=== PATIENT | female | born 1945 | race Caucasian/White ===

== ENCOUNTER 2019-08-28 09:40 | Outpatient (CLI) | payer BC, SELFPAY ==
--- NOTE | 2019-08-28 11:00 | NEURO_ITS ---
Patient Number: [id number] Impression: # Complains of hand numbness bilaterally. # No Carpal Tunnel Syndrome or ulnar neuropathy. # Normal needle/EMG exam. # Clinical correlation recommended. Nerve Conduction Studies Anti Sensory Summary Table Stim Site NR Peak (ms) P-T Amp (?V) Site1 Site2 Delta-P (ms) Dist (cm) Randy (m/s) Left Median Anti Sensory (2-3nd Digit) Wrist 2.5 58.5 Wrist 2-3nd Digit 2.5 14.0 56 Wrist 2.8 50.2 Wrist 2-3nd Digit 2.5 14.0 56 Right Median Anti Sensory (2-3nd Digit) Wrist 2.4 41.5 Wrist 2-3nd Digit 2.4 14.0 58 Wrist 2.4 58.3 Wrist 2-3nd Digit 2.4 14.0 58 Left Radial Anti Sensory (Base 1st Digit) Wrist 2.0 30.3 Wrist Base 1st Digit 2.0 0.0 Right Radial Anti Sensory (Base 1st Digit) Wrist 2.1 31.5 Wrist Base 1st Digit 2.1 0.0 Left Ulnar Anti Sensory (5th Digit) Wrist 2.5 50.2 Wrist 5th Digit 2.5 14.0 56 Right Ulnar Anti Sensory (5th Digit) Wrist 2.3 42.7 Wrist 5th Digit 2.3 14.0 61 Motor Summary Table Stim Site NR Onset (ms) O-P Amp (mV) Site1 Site2 Delta-0 (ms) Dist (cm) Randy (m/s) Left Median Motor (Abd Poll Brev) Wrist 2.7 6.9 Elbow Wrist 4.2 24.0 57 Elbow 6.9 2.9 Right Median Motor (Abd Poll Brev) Wrist 2.7 6.9 Elbow Wrist 4.7 26.0 55 Elbow 7.4 4.7 Left Ulnar Motor (Abd Dig Minimi) Wrist 2.7 6.3 A Elbow Wrist 4.3 27.0 63 A Elbow 7.0 4.5 Right Ulnar Motor (Abd Dig Minimi) Wrist 2.7 5.4 A Elbow Wrist 4.7 26.0 55 A Elbow 7.4 4.1 F Wave Studies NR F-Lat (ms) L-R F-Lat (ms) Left Median (Mrkrs) (Abd Poll Brev) 26.23 0.38 Right Median (Mrkrs) (Abd Poll Brev) 25.85 0.38 Left Ulnar (Mrkrs) (Abd Dig Min) 26.33 0.58 Right Ulnar (Mrkrs) (Abd Dig Min) 26.91 0.58 EMG Side Muscle Nerve Root Ins Act Fibs Amp Dur Recrt Comment Right 1stDorInt Ulnar C8-T1 Nml Nml Nml Nml Nml Right Ext Indicis Radial (Post Int) C7-8 Nml Nml Nml Nml Nml Right Ext Digitorum Radial (Post Int) C7-8 Nml Nml Nml Nml Nml Right BrachioRad Radial C5-6 Nml Nml Nml Nml Nml Right PronatorTeres Median C6-7 Nml Nml Nml Nml Nml Right Abd Poll Brev Median C8-T1 Nml Nml Nml Nml Nml Left 1stDorInt Ulnar C8-T1 Nml Nml Nml Nml Nml Left Ext Indicis Radial (Post Int) C7-8 Nml Nml Nml Nml Nml Left Ext Digitorum Radial (Post Int) C7-8 Nml Nml Nml Nml Nml Left BrachioRad Radial C5-6 Nml Nml Nml Nml Nml Left PronatorTeres Median C6-7 Nml Nml Nml Nml Nml Left Abd Poll Brev Median C8-T1 Nml Nml Nml Nml Nml Left ABD Dig Min Ulnar C8-T1 Nml Nml Nml Nml Nml Right ABD Dig Min Ulnar C8-T1 Nml Nml Nml Nml Nml MTDD
== END 2019-08-28 09:41 | disposition home or self-care (01) ==
PROVIDERS: PCP Family Medicine; Visit Provider Surgery Plastic and Reconstructive Surgery
DX: R20.0 Anesthesia of skin (principal)
CPT/HCPCS: 95886; 95911

== ENCOUNTER 2020-02-27 13:01 | Outpatient (CLI) | payer BC, SELFPAY ==
--- NOTE | ~2020-02-27 | DEXA_ITS ---
Bone Density Report Name: Chaya Santana Age: 74 Sex: Female Ethnicity: White Date of : 1945 Indication: postmenopausal; Referring Provider: Avril Cormier Study: Bone densitometry was performed. Exam Date: February 27, 2020 Accession number: [id number] Bone Density: Region BMD T-score Z-score Classification AP Spine (L2, L3, L4) 1.040 -0.4 2.0 Normal Femoral Neck (Left) 0.671 -1.6 0.4 Osteopenia Total Hip (Left) 0.932 -0.1 1.6 Normal Total Hip Bilateral Avg 0.933 -0.1 1.6 Normal Femoral Neck (Right) 0.667 -1.6 0.3 Osteopenia Total Hip (Right) 0.933 -0.1 1.6 Normal World Health Organization criteria for BMD impression classify patients as: Normal (T-score at or above -1.0), Osteopenia (T-score between -1.0 and -2.5), or Osteoporosis (T-score at or below -2.5). 10-year Fracture Risk(1): Major Osteoporotic Fracture 11% Hip Fracture 2.0% Reported Risk Factors: [place] (), Neck BMD=0.667, BMI=28.3 (1) FRAX(R) Version 3.08. Fracture probability calculated for an untreated patient. Fracture probability may be lower if the patient has received treatment. Clinical Information Provided by Patient: Patient maximum height was 63 Menopause Age: 44 No regular weight bearing exercise Drinks caffeinated beverages Onset of menses at age 13 Number of children 2 Impression: The patient has low bone mass, based on the Left Femoral Neck T-score. The patient has an estimated ten-year risk of hip fracture of 2% and an estimated ten-year risk of major fracture of 11%, based on the WHO FRAX algorithm. Discussion: BONE DENSITY IS LOW AT ONE OR MORE SKELETAL SITES. This patient's lowest T-score is low at one or more skeletal sites. It meets the World Health Organization's (WHO) criteria for ?low bone mass? (T-score between -1.0 and -2.5). The patient's 10-year risk of fracture as calculated by FRAX is less than the threshold where pharmacological therapy is recommended by the National Osteoporosis Foundation (NOF). However, all treatment decisions require clinical judgment and consideration of individual patient factors, including patient preferences, comorbidities, previous drug use, risk factors not captured in the FRAX model (e.g., frailty, falls, vitamin D deficiency, increased bone turnover, interval significant decline in bone density) and possible under or overestimation of fracture risk by FRAX. The patient should follow a healthful lifestyle (good nutrition with adequate calcium and vitamin D, and appropriate weight-bearing exercise). Follow-Up: Consider repeating this study in 2 to 3 years to reassess this patient's status, or sooner if there is some new clinical indication. Reported by: FAVIAN on 02/27/2020 1:56:00 PM. Reviewed, dictated a
--- NOTE | ~2020-02-27 | US_ITS ---
EXAMINATION: US thyroid DATE: 02/27/2020 13:31 INDICATION: Nontoxic single thyroid nodule TECHNIQUE: Multiple ultrasound images of the thyroid were obtained. COMPARISON: None. FINDINGS: The right thyroid lobe measures 3.9 x 1.4 x 1.3 cm. The left thyroid lobe measures 3.6 x 1.2 x 1.5 c m. 4 mm hypoechoic TI RADS 4 nodule in the left thyroid lobe. There is normal echotexture, echogenic ity and vascular flow throughout the thyroid gland. IMPRESSION: 1. 4 mm hypoechoic TI RADS 4 nodule in the left thyroid lobe which does not meet criteria for ultraso und-guided biopsy or follow-up. Reviewed, dictated and finalized at location B. IMPRESSION: 1. 4 mm hypoechoic TI RADS 4 nodule in the left thyroid lobe which does not brent t criteria for ultrasound-guided biopsy or follow-up.
== END 2020-02-27 13:02 | disposition home or self-care (01) ==
LOC: ANHIMG 13:09
PROVIDERS: PCP Physician Assistant; Visit Provider Internal Medicine Endocrinology, Diabetes & Metabolism
DX: E04.1 Nontoxic single thyroid nodule (principal); M85.80 Other specified disorders of bone density and structure, unspecified site; Z78.0 Asymptomatic menopausal state; M85.852 Other specified disorders of bone density and structure, left thigh; M85.851 Other specified disorders of bone density and structure, right thigh
CPT/HCPCS: 76536; 77080

== ENCOUNTER 2020-03-31 11:16 | Outpatient (CLI) | payer BC, SELFPAY ==
--- NOTE | ~2020-03-31 | CT_ITS ---
EXAMINATION: CTA chest PE protocol DATE: 03/31/2020 13:43 INDICATION: Elevated d-dimer TECHNIQUE: Computed tomography angiography (CTA) of the chest was performed with 100 mL Omnipaque-350 intravenous contrast timed to evaluate the pulmonary arteries. Coronal maximum intensity projection 3D-reconstructions were created by the technologist. Automated exposure control and iterative reconst ruction technique were employed. Exam dose: 387.03 mGy-cm total exam DLP. COMPARISON: None. FINDINGS: There is diagnostic contrast enhancement of the pulmonary arteries and no evidence of pulmo nary embolism. No thoracic aortic aneurysm or dissection. No hilar or mediastinal mass lesion or lymphadenopathy. No pericardial or pleural effusion. There is bilateral apical scarring. There is discoid atelectasis or scarring in both lower lobes. No pulmonary infiltrate or consolidation or any suspicious pulmonary mass lesion is noted. Diffuse idiopathic skeletal hyperostosis of the thoracic spine. IMPRESSION: No evidence of pulmonary embolism Reviewed, dictated and finalized at Location A. Reviewed, dictated and finalized at location A.
[2020-03-31 14:36] LABS: Estimated Glomerular Filt Rate > 60
== END 2020-03-31 11:17 | disposition home or self-care (01) ==
PROVIDERS: PCP Physician Assistant; Visit Provider Physician Assistant
DX: R79.1 Abnormal coagulation profile (principal)
CPT/HCPCS: 71275; Q9967

== ENCOUNTER → 2020-11-18 07:40 | Outpatient (CLI) | payer BC, SELFPAY ==
--- NOTE | ~2020-11-18 | US_ITS ---
EXAMINATION: US right upper quadrant DATE: 11/18/2020 08:14 INDICATION: Abnormal liver function tests. TECHNIQUE: Multiple grayscale and Doppler ultrasound images of the abdomen were obtained. COMPARISON: Chest CT 03/31/2020 FINDINGS: Abdominal aorta is normal in caliber. The visualized portions of the head, body, and tail o f the pancreas are normal. There is diffuse hepatic steatosis. No liver surface nodularity. There is normal flow in main portal vein. The gallbladder is normal in size and contains sludge. No gallstones or gallbladder wall thickening. There was no sonographic Reyes sign. The common duct is normal and measures 3 mm. IMPRESSION: 1. Diffuse hepatic steatosis. Reviewed, dictated and finalized at location B.
== END ==
PROVIDERS: PCP Physician Assistant; Visit Provider Physician Assistant
DX: K76.0 Fatty (change of) liver, not elsewhere classified (principal)
CPT/HCPCS: 76705

== ENCOUNTER 2021-01-21 09:52 | Outpatient (CLI) | payer BC, SELFPAY ==
[2021-01-21 16:53] LABS: Free T4 Free Thyroxine 1.05 ng/mL (0.78-2.19); Vitamin D 25 Hydroxy 49.7 ng/mL
== END 2021-01-21 09:53 | disposition home or self-care (01) ==
LOC: ANHWCLAB 09:55
PROVIDERS: PCP Physician Assistant; Visit Provider Internal Medicine Endocrinology, Diabetes & Metabolism
DX: E04.1 Nontoxic single thyroid nodule (principal); M85.80 Other specified disorders of bone density and structure, unspecified site
CPT/HCPCS: 36415; 82306; 84439; 84443

== ENCOUNTER 2021-10-23 12:25 | Emergency (ER) | payer MEDICARE, SELFPAY ==
[2021-10-23 12:34] VITALS: BP 111/64; PULSE 74; RESP 16; TEMP 36.4; O2SAT 99
--- NOTE | 2021-10-23 12:46 | ED.URI ---
HPI - URI/Sore Throat General Chief Complaint: Upper Respiratory Infection Stated Complaint: sore throat,head cold,slight fever Time Seen by Provider: 10/23/21 12:47 Source: patient, RN notes reviewed and old records reviewed Mode of arrival: ambulatory Limitations: no limitations History of Present Illness HPI Narrative: 76-year-old female who presents to [facility] with complaints of 3 day history of sore throat, sinus congestion and pressure, cough with intermittent low grade fevers with highest noted 99.7F. Patient reports that she has facial pressure with yellow sinus drainage, reports past sinusitis history. Patient is concerned over her symptoms since she is leaving for trip to [place] on this coming Monday. Patient reports that she has been taking Emergen- C and Haydee with no resolutions in her symptoms. Patient has had COVID vaccinations and flu shot this season. MD elicited complaint: fever and sore throat Related Data Home Medications Medication Instructions Recorded Confirmed azelastine 137 mcg (0.1 %) nasal NASAL PRN 01/21/21 01/21/21 spray aerosol potassium chloride meq PO 10/23/21 rosuvastatin mg 10/23/21 Allergies Allergy/AdvReac Type Severity Reaction Status Date / Time propoxyphene [From Darvon] Allergy Unknown Verified 09/13/19 08:09 amoxicillin AdvReac Nausea and Verified 10/23/21 12:37 Vomiting Review of Systems Review of Systems: CONSTITUTIONAL: Positive for low grade fever, chills, or sweats. EYES: Denies visual changes, redness, or discharge. ENT: Positive for rhinorrhea, congestion, sore throat, no otalgia, positive for facial sinus pressure CARDIOVASCULAR: Denies chest pain, palpitations, or edema. RESPIRATORY: Positive for cough denies dyspnea. GASTROINTESTINAL: Denies abdominal pain, nausea, vomiting, or diarrhea. GENITOURINARY: Denies dysuria or hematuria. SKIN: Denies rash or itching. MUSCULOSKELETAL: Chronic intermittent back pain, joint pain, or myalgia. NEUROLOGIC: Denies headache, numbness, or weakness. PSYCHIATRIC:Positive for history of anxiety or depression. All systems reviewed & are unremarkable except as noted in HPI and below PMFSH Past Medical History Medical History (Updated 10/23/21 @ 12:58 by Dennise Marroquin NP) Anxiety as acute reaction to exceptional stress (~2015) Essential (primary) hypertension Hyperlipidemia, unspecified Multinodular goiter (nontoxic) Postmenopausal (~1995) Reactive depression (situational) (~2015) Surgical History Surgical History (Updated 10/23/21 @ 22:21 by Dennise Marroquin NP) History of delivery 1982 History of tonsillectomy Family History Family History Mother Family history of thyroid disease Family history of lymphoma Father Hypertension Family history of heart disease in male family member before age 55 Sibling Hypertension Family history of diabetes mellitus in first degree relative Family history of malignant neoplasm of urinary bladder Grandparent Family history of colitis Diabetes mellitus Other Depression Family history of cardiovascular disease Family history of chronic obstructive pulmonary disease Family history of hearing loss Family history of hepatitis Family history of ulcerative colitis Social History Social History Smoking status: Former smoker Smoking end date: 06/26/82 Alcohol intake: current Comments At time of signature, agree with nursing past medical, surgical, social and family history. There is no relevant family history pertinent to the presenting complaint Exam Narrative: GENERAL: ill-appearing, well-nourished, and in no acute distress. HEAD: Normocephalic, atraumatic. EYES: PERRLA and EOMI. ENT: Nares red and swollen yellowish rhinorrhea no epistaxis. Mucous membranes moist.TM's normal with dull light reflex, throat red with no le
== END 2021-10-23 13:04 | disposition home or self-care (01) ==
PROVIDERS: Emergency Provider Registered Nurse; PCP Physician Assistant
DX: J32.9 Chronic sinusitis, unspecified (principal); B96.89 Other specified bacterial agents as the cause of diseases classified elsewhere; R05.9 Cough, unspecified; I10 Essential (primary) hypertension; E78.5 Hyperlipidemia, unspecified; Z87.891 Personal history of nicotine dependence
CPT/HCPCS: 99213; G0463

== ENCOUNTER 2023-03-23 14:24 | Outpatient (CLI) | payer MEDICARE, SELFPAY ==
--- NOTE | ~2023-03-23 | DEXA_ITS ---
Bone Density Report Name: DIEGO HOWARD Age: 77 Sex: Female Ethnicity: White Date of : 1945 Indication: postmenopausal; screening for osteoporosis; Referring Provider: EDIL, HECTOR Study: Bone densitometry was performed. Exam Date: March 23, 2023 Accession number: [id number] Bone Density: Region BMD T-score Z-score Classification AP Spine(L2, L3, L4) 1.059 -0.2 2.4 Normal Femoral Neck (Left) 0.666 -1.6 0.5 Osteopenia Total Hip (Left) 0.912 -0.2 1.6 Normal Femoral Neck (Right) 0.692 -1.4 0.7 Osteopenia Total Hip (Right) 0.908 -0.3 1.5 Normal Total Hip Mean 0.910 -0.3 1.6 Normal World Health Organization criteria for BMD impression classify patients as: Normal (T-score at or above -1.0), Osteopenia (T-score between -1.0 and -2.5), or Osteoporosis (T-score at or below -2.5). 10-year Fracture Risk(1): Major Osteoporotic Fracture 12% Hip Fracture 2.6% Reported Risk Factors: [place] (), Neck BMD=0.666, BMI=26.7 (1) FRAX(R) Version 3.08. Fracture probability calculated for an untreated patient. Fracture probability may be lower if the patient has received treatment. Previous Exams: Region Exam Age BMD T-score BMD Change BMD Change Date g/cm2 vs Baseline vs Previous AP Spine (L2-L4) 03/23/2023 77 1.059 -0.2 0.019 (1.8%)# 0.019 (1.8%)# 02/27/2020 74 1.040 -0.4 Total Hip(Left) 03/23/2023 77 0.912 -0.2 -0.020 (-2.2%) -0.020 (-2.2%) 02/27/2020 74 0.932 -0.1 Total Hip(Right) 03/23/2023 77 0.908 -0.3 -0.025 (-2.7%) -0.025 (-2.7%) 02/27/2020 74 0.933 -0.1 *Denotes significance at 95% confidence level, LSC for AP Spine = 0.022 g/cm2, LSC for Total Hip = 0.027 g/cm2 # Denotes dissimilar scan types or analysis methods Clinical Information Provided by Patient: Has used the following medications: Vitamin D, Calcium Patient maximum height was 63 Menopause Age: 44 No regular weight bearing exercise Does not regularly consume dairy products Onset of menses at age 13 Number of children 2 Impression: The patient has low bone mass, based on the Left Femoral Neck T-score. The patient has an estimated ten-year risk of hip fracture of 2.6% and an estimated ten-year risk of major fracture of 12%, based on the WHO FRAX algorithm. No significant bone loss was observed. Discussion: BONE DENSITY IS LOW AT ONE OR MORE SKELETAL SITES. This patient's lowest T-score is low at one or more skeletal
== END 2023-03-23 14:25 | disposition home or self-care (01) ==
PROVIDERS: PCP Physician Assistant; Visit Provider Physician Assistant
DX: M85.852 Other specified disorders of bone density and structure, left thigh (principal); M85.851 Other specified disorders of bone density and structure, right thigh
CPT/HCPCS: 77080

== ENCOUNTER 2023-04-13 09:57 | Emergency (ER) | payer MEDICARE, SELFPAY ==
[2023-04-13] VITALS (9 sets, daily range): BP systolic 122–147; BP diastolic 65–87; PULSE 60–77; RESP 14–20; TEMP 36.6; O2SAT 96–100
--- NOTE | ~2023-04-13 | XR_ITS ---
Clinical Indication: Chest pain PA and lateral views of the chest: Comparison: None Findings: The lungs are clear, without evidence of focal consolidation or pleural effusion. Cardiome diastinal silhouette is within normal limits. Bones and soft tissues are unremarkable. Impression: Normal chest. Reviewed, dictated and finalized at location . Impression: Normal chest.
--- NOTE | 2023-04-13 10:05 | ECG_ITS ---
Measurements Intervals Sherman Rate: 71 P: 57 CA: 137 QRS: 44 QRSD: 80 T: 66 QT: 370 QTc: 403 Interpretive Statements SINUS RHYTHM NORMAL ECG NO PREVIOUS ECG AVAILABLE FOR COMPARISON Electronically Signed On 04-13-2023 17:17:52 CDT by Giovany Alves M.D.
[2023-04-13 10:31] LABS: Basophils Absolute Auto 0.1 K/mm3 (0.0-0.1); Basophils Percent Auto 1.6 % (0.2-1.2); Eosinophils Absolute Auto 0.2 K/mm3 (0-0.3); Eosinophils Percent Auto 2.9 % (0-4.4); Hematocrit 40.4 % (37.0-47.0); Immature Granulocyte Absolute 0.01 K/mm3 (0.00-0.031); Immature Granulocyte Percent A 0.2 % (0-0.5); Lymphocytes Absolute Auto 1.52 K/mm3 (0.9-3.2); Lymphocytes Percent Auto 24.7 % (18.3-44.2); Mean Corpuscular HGB Conc 32.2 g/dl (32-36); Mean Corpuscular Hemoglobin 30.7 pg (26-34); Mean Corpuscular Volume 95.5 fl (80-100); Mean Platelet Volume 10.7 fl (7.4-10.4); Monocytes Absolute Auto 0.6 K/mm3 (0.1-0.6); Monocytes Percent Auto 10.4 % (2.6-8.5); Neutrophils Absolute Auto 3.7 K/mm3 (1.3-6.7); Neutrophils Percent Auto 60.2 % (45.5-73.1); Platelet Count Result 237 k/mm3 (150-375); Red Blood Count 4.23 M/mm3 (4.2-5.4); Red Cell Distribution Width 12.4 % (11.5-14.5); White Blood Count 6.2 K/mm3 (4.5-10.0)
[2023-04-13 10:42] LABS: INR 0.9; Partial Thromboplastin Time 25.3 SECONDS (22.3-36.8)
[2023-04-13 10:45] LABS: Alanine Aminotransferase 32 U/L (6-35); Albumin Level 4.2 g/dL (3.5-5.1); Alkaline Phosphatase 70 U/L (38-126); Anion Gap 8 mmol/L (8-16); Aspartate Amino Transferase 34 U/L (14-36); Bilirubin,Total 0.6 mg/dL (0.2-1.3); Blood Urea Nitrogen 19 mg/dL (7-17); Carbon Dioxide 26 mmol/L (22-30); Chloride 102 mmol/L (98-107); Estimated CRCL calculation 44 ml/min; Estimated Glomerular Filt Rate > 60; Glucose 103 mg/dL (65-110); Lipase 233 U/L (23-300); Potassium 3.8 mmol/L (3.4-5.0); Sodium 136 mmol/L (137-145)
[2023-04-13 10:54] LABS: Troponin I < 0.012 ng/mL (0.000-0.034)
--- NOTE | 2023-04-13 12:50 | ED.CHESTPAIN ---
HPI - Chest Pain General Chief Complaint: Chest Pain Stated Complaint: High BP/ Chest pain Time Seen by Provider: 04/13/23 11:59 History of Present Illness HPI narrative: Patient is a 77-year-old female who presents ER with reports of heart palpitations and lightheadedness. Began early this morning. Lasted 2 hours. Heart rate was approximately 136 bpm and she felt like it was irregular. She had some sharpness under her right breast. Not associated with eating or drinking. No fevers or chills or sweats. No history of heart disease or arrhythmia. Asymptomatic at this time Related Data Home Medications Medication Instructions Recorded Confirmed azelastine 137 mcg (0.1 %) nasal intranasal PRN 01/21/21 01/19/23 spray aerosol potassium chloride 10 mEq meq PO 10/23/21 01/19/23 tablet,extended release [facility] 01/19/22 01/19/23 acetaminophen 650 mg 650 mg PO Q12H 01/19/22 01/19/23 tablet,extended release (Arthritis Pain Reliever) calcium carb-ergocalciferol (vit tablet PO 01/19/22 01/19/23 D2) 600 mg calcium-200 unit tablet fexofenadine 60 mg tablet (Haydee 60 mg PO Q12H 01/19/22 01/19/23 Allergy) melatonin 10 mg capsule 10 mg PO QHS 01/19/22 01/19/23 osteo biflex [facility] 01/19/22 01/19/23 rosuvastatin 10 mg tablet 10 mg PO DAILY 01/19/22 01/19/23 triamterene 37.5 1 tablet PO QAM 01/19/22 01/19/23 mg-hydrochlorothiazide 25 mg tablet Allergies Allergy/AdvReac Type Severity Reaction Status Date / Time propoxyphene [From Darvon] Allergy Unknown Verified 01/19/23 09:09 amoxicillin AdvReac Nausea and Verified 01/19/23 09:09 Vomiting Review of Systems Review of Systems: All systems reviewed & are unremarkable except as noted in HPI and below Constitutional: Constitutional: Denies chills, Denies fatigue and Denies fever(s) ENT: Denies nasal congestion and Denies sore throat Cardiovascular: Cardiovascular: Reports chest pain, Reports rapid heart rate and Denies radiating jaw, neck or arm pain Respiratory: Respiratory: Denies cough and Denies dyspnea Gastrointestinal: Gastrointestinal: Reports abdominal pain, Denies diarrhea, Denies nausea and Denies vomiting Genitourinary: Genitourinary: Reports no additional female genitourinary complaints Musculoskeletal: Musculoskeletal: Reports no additional musculoskeletal complaints PMFSH Past Medical History Medical History Anxiety as acute reaction to exceptional stress (~2015) Essential (primary) hypertension Hyperlipidemia, unspecified Multinodular goiter (nontoxic) Postmenopausal (~1995) Reactive depression (situational) (~2015) Surgical History Surgical History History of delivery 1982 History of tonsillectomy Family History Family History Mother Family history of thyroid disease Family history of lymphoma Father Hypertension Family history of heart disease in male family member before age 55 Sibling Hypertension Family history of diabetes mellitus in first degree relative Family history of malignant neoplasm of urinary bladder Grandparent Family history of colitis Diabetes mellitus Other Depression Family history of cardiovascular disease Family history of chronic obstructive pulmonary disease Family history of hearing loss Family history of hepatitis Family history of ulcerative colitis Social History Social History Smoking status: Former smoker Smoking end date: 06/26/82 Alcohol intake: current Exam Narrative: GENERAL: Well-appearing, well-nourished, and in no acute distress. HEAD: Normocephalic, atraumatic. EYES: PERRL and EOMI. ENT: Mucous membranes moist. CHEST: Clear to auscultation. No respiratory distress. HEART: Regular rate and rhyth
[2023-04-13 13:46] LABS: Troponin I 0.014 ng/mL (0.000-0.034)
[2023-04-13 15:32] LABS: Thyroid Stimulating Hormone Reflex 0.434 uIU/mL (0.465-4.68)
[2023-04-13 16:44] LABS: Free T4 Free Thyroxine Reflex 1.21 ng/dL (0.78-2.19)
[2023-04-13 17:28] LABS: Total Triiodothyronine (T3) 1.27 NG/ML (0.97-1.69)
== END 2023-04-13 14:42 | disposition home or self-care (01) ==
PROVIDERS: Emergency Medicine; Emergency Provider Emergency Medicine; PCP Physician Assistant
DX: R00.2 Palpitations (principal); R07.9 Chest pain, unspecified; I10 Essential (primary) hypertension; Z87.891 Personal history of nicotine dependence
CPT/HCPCS: 36415; 71046; 80053; 83690; 84439; 84443; 84480; 84484; 85025; 85610; 85730; 93005; 99284